=== PATIENT | male | born 1955 | race African-American/Black ===

== ENCOUNTER 2023-12-19 12:31 | Emergency (ER) | payer MEDICARE ==
[2023-12-19] MEDS ORDERED: Clindamycin/D5W 300 MG/50 ML BAG ONE (13:26)
[2023-12-19] MEDS ORDERED: Sodium Chloride 0.9% 1,000 ML ONE (13:26)
[2023-12-19 13:39] LABS: ALT (SGPT) 16 U/L (8-55); AST (SGOT) 18 U/L (5-34); Alkaline Phosphatase 104 U/L (40-110); Anion Gap 13 mmol/L (10-20); BUN (Urea Nitrogen) 18 mg/dL (8.4-25.7); Bilirubin, Total 0.2 mg/dL (0.2-1.2); Calc. Creatinine Clearance 0 mL/min (70-130); Calcium 8.9 mg/dL (7.8-10.44); Carbon Dioxide 21 mmol/L (23-31); Chloride 108 mmol/L (98-107); Estimated GFR 94; Globulin 3.7 g/dL (2.4-3.5); Glucose 107 mg/dL (80-115); Potassium 3.6 mmol/L (3.5-5.1); Protein, Total 6.7 g/dL (5.8-8.1); Sodium 138 mmol/L (136-145)
[2023-12-19 13:43] LABS: Hemoglobin 11.7 g/dL (14.0-18.0); Mean Corpuscular HGB CONC 31.8 g/dL (32.0-36.0); Mean Corpuscular Hemoglobin 27.7 pg (27.0-31.0); Mean Corpuscular Volume 87.2 fl (78.0-98.0); Mean Platelet Volume 7.6 fL (7.4-10.4); Platelet Count 247 10x3/uL (130-400); RBC Distribution Width 14.2 % (11.5-14.5); Red Blood Cell (RBC) Count 4.24 mill/uL (4.70-6.10); White Blood Cell (WBC) Count 7.6 10x3/uL (4.8-10.8)
[2023-12-19 13:48] LABS: %Neutrophils 63.5 % (42.0-75.0)
[2023-12-19 13:49] LABS: #Lymphocytes 1.2 thou/uL (1.20-3.40); #Monocytes 0.6 thou/uL (0.11-0.59); #Neutrophils 4.8 thou/uL (1.40-6.50); %Basophils 0.7 % (0.0-1.0); %Eosinophils 13.2 % (0.0-10.0); %Lymphocytes 15.2 % (21.0-51.0); %Monocytes 7.3 % (0.0-10.0)
[2023-12-19 13:50] LABS: #Basophils 0.1 thou/uL (0.0-0.2)
[2023-12-19] MEDS ORDERED: Sodium Chloride 0.9% 250 ML 250 ML ONE (14:08)
[2023-12-19] MEDS ORDERED: Vancomycin 1 GM VIAL ONE (14:08)
[2023-12-19] MEDS ORDERED: Cefepime 2 GM VIAL ONE (14:08)
[2023-12-19] MEDS ORDERED: Sodium Chloride 0.9% 100 ML ONE (14:08)
[2023-12-19] MEDS ORDERED: Bacitracin 1 PK ONE (14:08)
== END 2023-12-19 17:29 | disposition short-term general hospital (02) ==
LOC: NAV ERS 12:31
DX: M86.8X4 Other osteomyelitis, hand (principal); D64.9 Anemia, unspecified; I10 Essential (primary) hypertension; F17.210 Nicotine dependence, cigarettes, uncomplicated
CPT/HCPCS: 36415; 80053; 83605; 85025; 87040; 96365; 96367; J0692; J3370; J3490; J7030; J7050

== ENCOUNTER 2024-01-05 11:38 | Emergency (ER) | payer MEDICARE | END 2024-01-05 12:10 | disposition home or self-care (01) | LOC: NAV ERS 11:38 | DX: Z48.00 Encounter for change or removal of nonsurgical wound dressing (principal); I10 Essential (primary) hypertension; K21.9 Gastro-esophageal reflux disease without esophagitis; F17.210 Nicotine dependence, cigarettes, uncomplicated; Z79.899 Other long term (current) drug therapy | CPT/HCPCS: 99282 ==

== ENCOUNTER 2024-01-06 18:39 | Inpatient (IN) | payer MEDICARE ==
[2024-01-07] MEDS ORDERED: Ondansetron ODT 4 MG TAB PO PRN (20:57)
[2024-01-07] MEDS ORDERED: Acetaminophen 325 MG TAB PO PRN (20:57)
[2024-01-07] MEDS: Ibuprofen 800 MG TAB PO PRN (22:29)
[2024-01-07] MEDS: Famotidine 20 MG TAB PO SCH (22:31)
[2024-01-08] MEDS: Lisinopril 5 MG TAB PO SCH (08:08)
[2024-01-08] MEDS: Tamsulosin HCl 0.4 MG CAP PO SCH (08:08)
[2024-01-08] MEDS: FLU (Fluad Triv) TS24-25 (65UP)/MF59C/PF 45 MCG/0.5 ML Syringe IM ONE (08:09)
[2024-01-08] MEDS: Famotidine 20 MG TAB PO SCH (08:09)
[2024-01-08] MEDS ORDERED: Calcium Carbonate 500 MG ChewTAB PO PRN (08:25)
[2024-01-08] MEDS ORDERED: Vancomycin 1.5 GM in Sodium Chloride 0.9% 250 ML 300 ML IVPB SCH (09:00)
[2024-01-08] MEDS: Nicotine 7 MG PATCH TD SCH (09:41)
[2024-01-08] MEDS: Pantoprazole DR 40 MG TAB PO SCH (09:41)
[2024-01-08 09:50] LABS: ALT (SGPT) 21 U/L (8-55); AST (SGOT) 17 U/L (5-34); Albumin 3.1 g/dL (3.4-4.8); Alkaline Phosphatase 90 U/L (40-110); Anion Gap 10 mmol/L (10-20); BUN (Urea Nitrogen) 16 mg/dL (8.4-25.7); Bilirubin, Total 0.3 mg/dL (0.2-1.2); Calc. Creatinine Clearance 54 mL/min (70-130); Calcium 8.6 mg/dL (7.8-10.44); Carbon Dioxide 20 mmol/L (23-31); Chloride 108 mmol/L (98-107); Estimated GFR 83; Globulin 3.3 g/dL (2.4-3.5); Glucose 86 mg/dL (80-115); Protein, Total 6.4 g/dL (5.8-8.1); Sodium 134 mmol/L (136-145)
[2024-01-08 09:51] LABS: Vancomycin, Random 8.3 ug/mL (See Comment)
[2024-01-08 10:06] LABS: #Basophils 0.2 thou/uL (0.0-0.2); #Eosinophils 0.9 thou/uL (0.0-0.7); #Lymphocytes 0.6 thou/uL (1.20-3.40); #Monocytes 0.6 thou/uL (0.11-0.59); #Neutrophils 2.4 thou/uL (1.40-6.50); %Basophils 4.5 % (0.0-1.0); %Eosinophils 19.2 % (0.0-10.0); %Lymphocytes 12.3 % (21.0-51.0); %Monocytes 13.2 % (0.0-10.0); %Neutrophils 50.8 % (42.0-75.0); Hematocrit 32.3 % (42.0-52.0); Hemoglobin 10.7 g/dL (14.0-18.0); Mean Corpuscular Hemoglobin 27.9 pg (27.0-31.0); Mean Corpuscular Volume 84.5 fl (78.0-98.0); Mean Platelet Volume 8.2 fL (7.4-10.4); Platelet Count 246 10x3/uL (130-400); RBC Distribution Width 13.2 % (11.5-14.5); Red Blood Cell (RBC) Count 3.83 mill/uL (4.70-6.10); White Blood Cell (WBC) Count 4.6 10x3/uL (4.8-10.8)
[2024-01-08] MEDS: Vancomycin 1 GM in Sodium Chloride 0.9% 250 ML 250 ML IVPB SCH (17:54)
[2024-01-08] MEDS: Vancomycin HCl 500 MG in Sodium Chloride 0.9% 100 ML IVPB SCH (19:54)
[2024-01-09 00:17] VITALS: BMI 22.8
[2024-01-09] MEDS: Saccharomyces boulardii 250 MG CAP PO SCH (07:44)
[2024-01-10 05:57] LABS: Vancomycin, Random 12.8 ug/mL (See Comment)
[2024-01-10] MEDS: Vancomycin 1 GM in Sodium Chloride 0.9% 250 ML 250 ML IVPB SCH (14:43)
[2024-01-10] MEDS: Vancomycin 1 GM VIAL ONE (23:51)
[2024-01-12 06:01] LABS: Vancomycin, Random 18.9 ug/mL (See Comment)
[2024-01-13] MEDS: Lisinopril 5 MG TAB PO SCH (10:25)
[2024-01-14] MEDS: Lisinopril 5 MG TAB PO SCH (08:02)
[2024-01-15 05:53] LABS: Vancomycin, Random 17.6 ug/mL (See Comment)
[2024-01-15 09:12] LABS: #Basophils 0.1 thou/uL (0.0-0.2); #Eosinophils 0.8 thou/uL (0.0-0.7); #Lymphocytes 1.2 thou/uL (1.20-3.40); #Monocytes 0.8 thou/uL (0.11-0.59); #Neutrophils 4.8 thou/uL (1.40-6.50); %Eosinophils 10.5 % (0.0-10.0); %Lymphocytes 15.8 % (21.0-51.0); %Monocytes 10.1 % (0.0-10.0); %Neutrophils 62.6 % (42.0-75.0); Hematocrit 32.5 % (42.0-52.0); Hemoglobin 10.7 g/dL (14.0-18.0); Mean Corpuscular HGB CONC 32.8 g/dL (32.0-36.0); Mean Corpuscular Hemoglobin 28.1 pg (27.0-31.0); Mean Corpuscular Volume 85.7 fl (78.0-98.0); Mean Platelet Volume 7.3 fL (7.4-10.4); Platelet Count 231 10x3/uL (130-400); RBC Distribution Width 13.8 % (11.5-14.5); Red Blood Cell (RBC) Count 3.79 mill/uL (4.70-6.10); White Blood Cell (WBC) Count 7.6 10x3/uL (4.8-10.8)
[2024-01-15] MEDS ORDERED: Vancomycin 1 GM in Sodium Chloride 0.9% 250 ML 250 ML IVPB SCH (12:00)
[2024-01-15] MEDS: Vancomycin 1 GM in Sodium Chloride 0.9% 250 ML 250 ML IVPB SCH (12:44)
[2024-01-17] MEDS: Acetaminophen 325 MG TAB PO PRN (12:33)
[2024-01-20 05:58] LABS: Vancomycin, Random 20.3 ug/mL (See Comment)
[2024-01-20] MEDS: Bacitracin 1 PK TOP SCH (09:14)
[2024-01-20] MEDS: Polyethylene Glycol 3350 17 GM Packet PO PRN (15:08)
[2024-01-22 09:26] LABS: #Eosinophils 0.5 thou/uL (0.0-0.7); #Lymphocytes 1.5 thou/uL (1.20-3.40); #Monocytes 0.5 thou/uL (0.11-0.59); %Basophils 0.9 % (0.0-1.0); %Eosinophils 9.6 % (0.0-10.0); %Lymphocytes 26.3 % (21.0-51.0); %Neutrophils 54.3 % (42.0-75.0); Hematocrit 35.5 % (42.0-52.0); Hemoglobin 11.3 g/dL (14.0-18.0); Mean Corpuscular HGB CONC 31.8 g/dL (32.0-36.0); Mean Corpuscular Hemoglobin 27.5 pg (27.0-31.0); Mean Corpuscular Volume 86.4 fl (78.0-98.0); Mean Platelet Volume 6.7 fL (7.4-10.4); Platelet Count 200 10x3/uL (130-400); RBC Distribution Width 13.7 % (11.5-14.5); Red Blood Cell (RBC) Count 4.11 mill/uL (4.70-6.10); White Blood Cell (WBC) Count 5.6 10x3/uL (4.8-10.8)
[2024-01-22 09:29] LABS: ALT (SGPT) 14 U/L (8-55); AST (SGOT) 12 U/L (5-34); Albumin 3.5 g/dL (3.4-4.8); Alkaline Phosphatase 103 U/L (40-110); Anion Gap 11 mmol/L (10-20); BUN (Urea Nitrogen) 20 mg/dL (8.4-25.7); Bilirubin, Total 0.3 mg/dL (0.2-1.2); Calc. Creatinine Clearance 89 mL/min (70-130); Calcium 8.8 mg/dL (7.8-10.44); Carbon Dioxide 22 mmol/L (23-31); Chloride 108 mmol/L (98-107); Estimated GFR 87; Globulin 3.6 g/dL (2.4-3.5); Glucose 91 mg/dL (80-115); Potassium 4.2 mmol/L (3.5-5.1); Protein, Total 7.1 g/dL (5.8-8.1); Sodium 137 mmol/L (136-145)
[2024-01-22 16:04] LABS: CRP,High Sensitivity (Inhouse) 0.43 mg/dL (< or = 0.5)
[2024-01-24] MEDS: Ibuprofen 800 MG TAB PO PRN (22:19)
[2024-01-24] MEDS: Melatonin 3 MG TAB PO PRN (23:07)
[2024-01-29 05:46] LABS: #Eosinophils 0.7 thou/uL (0.0-0.7); #Lymphocytes 1.4 thou/uL (1.20-3.40); #Monocytes 0.6 thou/uL (0.11-0.59); #Neutrophils 2.6 thou/uL (1.40-6.50); %Basophils 0.7 % (0.0-1.0); %Eosinophils 12.5 % (0.0-10.0); %Lymphocytes 26.1 % (21.0-51.0); %Monocytes 11.1 % (0.0-10.0); %Neutrophils 49.5 % (42.0-75.0); Hematocrit 35.2 % (42.0-52.0); Hemoglobin 11.6 g/dL (14.0-18.0); Mean Corpuscular HGB CONC 32.8 g/dL (32.0-36.0); Mean Corpuscular Volume 85.2 fl (78.0-98.0); Mean Platelet Volume 7.6 fL (7.4-10.4); Platelet Count 191 10x3/uL (130-400); RBC Distribution Width 13.7 % (11.5-14.5); Red Blood Cell (RBC) Count 4.13 mill/uL (4.70-6.10); White Blood Cell (WBC) Count 5.3 10x3/uL (4.8-10.8)
[2024-01-29 06:02] LABS: ALT (SGPT) 10 U/L (8-55); AST (SGOT) 11 U/L (5-34); Albumin 3.3 g/dL (3.4-4.8); Alkaline Phosphatase 93 U/L (40-110); Anion Gap 11 mmol/L (10-20); BUN (Urea Nitrogen) 22 mg/dL (8.4-25.7); Bilirubin, Total 0.3 mg/dL (0.2-1.2); Calc. Creatinine Clearance 79 mL/min (70-130); Carbon Dioxide 21 mmol/L (23-31); Chloride 109 mmol/L (98-107); Estimated GFR 75; Globulin 3.3 g/dL (2.4-3.5); Glucose 88 mg/dL (80-115); Potassium 4.2 mmol/L (3.5-5.1); Protein, Total 6.6 g/dL (5.8-8.1); Sodium 137 mmol/L (136-145)
[2024-01-30 12:43] LABS: CRP,High Sensitivity (Inhouse) 0.36 mg/dL (< or = 0.5)
[2024-01-31 07:49] VITALS: BMI 24.7
[2024-01-31 20:06] VITALS: BP 118/56; TEMP 98.6
== END 2024-02-01 17:20 | disposition home or self-care (01) | DRG 948 ==
LOC: NAV ACUTE 01-07 21:14
PROVIDERS: ADMIT Student in an Organized Health Care Education/Training Program; ATTEND Student in an Organized Health Care Education/Training Program
DX: R53.81 Other malaise (principal); M86.9 Osteomyelitis, unspecified; L02.511 Cutaneous abscess of right hand; I10 Essential (primary) hypertension; R73.03 Prediabetes; N40.0 Benign prostatic hyperplasia without lower urinary tract symptoms; K21.9 Gastro-esophageal reflux disease without esophagitis; M17.12 Unilateral primary osteoarthritis, left knee; E78.5 Hyperlipidemia, unspecified; K59.00 Constipation, unspecified; G47.00 Insomnia, unspecified; M19.90 Unspecified osteoarthritis, unspecified site; Z79.899 Other long term (current) drug therapy
CPT/HCPCS: 36415; 36416; 80053; 80202; 82565; 85025; 86140; 86141; 97602; J3370; J7050

== ENCOUNTER 2024-03-02 10:42 | Emergency (ER) | payer MEDICARE ==
[2024-03-02 11:09] LABS: #Basophils 0.1 thou/uL (0.0-0.2); #Eosinophils 0.3 thou/uL (0.0-0.7); #Lymphocytes 0.7 thou/uL (1.20-3.40); #Monocytes 0.9 thou/uL (0.11-0.59); #Neutrophils 11.2 thou/uL (1.40-6.50); %Basophils 0.4 % (0.0-1.0); %Eosinophils 2.2 % (0.0-10.0); %Lymphocytes 5.4 % (21.0-51.0); Hematocrit 36.7 % (42.0-52.0); Hemoglobin 11.6 g/dL (14.0-18.0); Mean Corpuscular HGB CONC 31.5 g/dL (32.0-36.0); Mean Corpuscular Hemoglobin 26.4 pg (27.0-31.0); Mean Corpuscular Volume 83.7 fl (78.0-98.0); Mean Platelet Volume 7.6 fL (7.4-10.4); Platelet Count 238 10x3/uL (130-400); RBC Distribution Width 13.3 % (11.5-14.5); Red Blood Cell (RBC) Count 4.38 mill/uL (4.70-6.10); White Blood Cell (WBC) Count 13.2 10x3/uL (4.8-10.8)
[2024-03-02] MEDS ORDERED: Sulfameth/Trimethoprim DS 800-160mg TAB ONE (11:53)
== END 2024-03-02 12:03 | disposition home or self-care (01) ==
LOC: NAV ERS 10:42
DX: L03.113 Cellulitis of right upper limb (principal); I10 Essential (primary) hypertension; F17.210 Nicotine dependence, cigarettes, uncomplicated
CPT/HCPCS: 85025; 99283

== ENCOUNTER 2024-03-07 17:51 | Emergency (ER) | payer MEDICARE ==
[2024-03-07] MEDS ORDERED: Sulfameth/Trimethoprim DS 800-160mg TAB ONE (18:17)
== END 2024-03-07 18:56 | disposition home or self-care (01) ==
LOC: NAV ERS 17:51
DX: L02.413 Cutaneous abscess of right upper limb (principal); I10 Essential (primary) hypertension; F17.210 Nicotine dependence, cigarettes, uncomplicated
CPT/HCPCS: 99283